=== PATIENT | female | born 1995 | race Two or more races ===

== ENCOUNTER 2021-11-04 12:59 | Emergency (ER) | payer SELFPAY ==
[~2021-11-04] VITALS: Ht 154.9 cm; Wt 90.0 kg
[2021-11-04] MEDS ORDERED: fentaNYL PF VIAL 100 MCG/2 ML VIAL IVP ONE (14:15)
[2021-11-04] MEDS ORDERED: ONDANSETRON PF 4 MG/2 ML VIAL. IVP ONE (14:15)
[2021-11-04] MEDS ORDERED: IV NORMAL SALINE 1000ML BAG 1,000 ML IV ONE (14:15)
--- NOTE | 2021-11-04 14:44 | PHYS DOC ---
Past Medical History Past Surgical History: No Surgical History General Adult EDM: Chief Complaint: ABDOMINAL PAIN HPI: HPI: Patient is a 26 year old female with no significant medical history presenting today with multiple complaints. Patient is complaining of 4 out of 10 right upper quadrant abdominal pain with nausea, chills, sore throat, right ear pain, symptoms began 2 weeks ago. Patient denies any fever. Denies any cough or congestion. Denies any chance she is . Patient is Yoruba-speaking, lead cashier line was attempted with no success, the wait time was too long. [employer] visiting professor was used Review of Systems: Review of Systems: Constitutional: Reports chills denies fever Eyes: Denies change in visual acuity. [] HENT: Reports right ear pain, sore throat denies nasal congestion Respiratory: denies cough or shortness of breath. [] Cardiovascular: Denies chest pain or edema. [] GI: Reports right upper quadrant abdominal pain, denies vomiting, bloody stools or diarrhea. [] : Denies dysuria. [] Musculoskeletal: Denies back pain or joint pain. [] Integument: Denies rash. [] Neurologic: Denies headache, focal weakness or sensory changes. [] Psychiatric: Denies depression or anxiety. [] Heart Score: C/O Chest Pain: N/A Risk Factors: Risk Factors: DM, Current or recent (<one month) smoker, HTN, HLP, family hi story of CAD, obesity. Risk Scores: Score 0 - 3: 2.5% MACE over next 6 weeks - Discharge Home Score 4 - 6: 20.3% MACE over next 6 weeks - Admit for Clinical Observation Score 7 - 10: 72.7% MACE over next 6 weeks - Early Invasive Strategies Current Medications: Current Medications Medications (Trade) Dose Ordered Sig/Caridad Start Time Stop Time Status Last Admin Dose Admin Fentanyl Citrate (Fentanyl 2ml Vial) 50 mcg 1X ONCE 11/04/21 14:15 11/04/21 14:23 DC Ondansetron HCl (Zofran) 4 mg 1X ONCE 11/04/21 14:15 11/04/21 14:23 DC Sodium Chloride 1,000 ml @ 1,000 mls/hr 1X ONCE 11/04/21 14:15 11/04/21 15:14 Allergies: Allergies: Allergies Coded Allergies Type Severity Reaction Last Updated Verified No Known Drug Allergies 11/04/21 No Physical Exam: PE: Constitutional: Well developed, well nourished, no acute distress, non-toxic appearance. [] HENT: Normocephalic, atraumatic, bilateral external ears normal, oropharynx moist, no oral exudates, nose normal. [] Eyes: PERRLA, EOMI, conjunctiva normal, no discharge. [] Neck: Normal range of motion, no tenderness, supple, no stridor. [] Cardiovascular:Heart rate regular rhythm, no murmur [] Lungs & Thorax: Bilateral breath sounds clear to auscultation [] Abdomen: Bowel sounds normal, soft, slight tenderness in the right upper quadrant with negative Song sign, no right lower quadrant tenderness, no masses, no pulsatile masses. [] Skin: Warm, dry, no erythema, no rash. [] Back: No tenderness, no CVA tenderness. [] Extremities: No tenderness, no cyanosis, no clubbing, ROM intact, no edema. [] Neurologic: Alert and oriented X 3, normal motor function, normal sensory function, no focal deficits noted. [] Psychologic: Affect normal, judgement normal, mood normal. [] Current Patient Data: Vital Signs: Vital Signs Date Time Temp Pulse Resp B/P (MAP) Pulse Ox O2 Delivery O2 Flow Rate FiO2 11/04/21 13:37 98.9 83 20 140/88 (105) 99 Room Air 98.9 EKG: EKG: [] Radiology/Procedures: Radiology/Procedures: []PROCEDURE: ABDOMEN LTD Exam Date: 11/04/2021 2:40 PM US ABDOMEN LIMITED Indication: Reason: RUQ pain / Spl. Instructions: / History: . TECHNIQUE: Multiple longitudinal and transverse sonographic images of the right upper quadrant and gallbladder are submitted for interpretation. FINDINGS: The liver is normal in size but diffusely increased in echogenicity and h eterogeneous in echotexture. The portal vein is patent with hepatopetal flow. No focal intrahepatic abnormality is seen. The gallbladder is normal, without gallstones, gallbladder wall thickening or pericholecystic fluid. There is no biliary ductal dilatation, with the common bile duct measuring 3 mm. The visualized abdominal aorta, inferior vena cava and pancreas are within normal limits. There is no upper abdominal ascites. The right kidney is normal in appearance, measuring 10.1 cm. IMPRESSION: Diffusely increased hepatic echogenicity and heterogeneous echotexture, consistent with underlying fatty infiltration and/or hepatocellular disease. This limits sonographic sensitivity. Electronically signed by: Lorna Robbins MD (11/04/2021 3:50 PM) [facility] DICTATED and SIGNED BY: LORNA ROBBINS MD DATE: 11/04/21 [id number] 0 Course & Med Decision Making: Course & Med Decision Making Pertinent Labs and Imaging studies reviewed. (See chart for details) This a 26-year-old female patient presenting to the ED today with complaints of right upper quadrant abdominal pain, nausea, chills, sore throat, right ear pain, symptoms for 2 weeks. Vitals on arrival to the ED temperature 98.9, heart rate 83, respiration 20 on room air, blood pressure 140/88, O2 sats 99% Right upper quadrant limited ultrasound noted for diffusely increased hepatic echogenicity and heterogeneous echotexture, consistent with underlying fatty infiltration and/or hepatocellular disease. This limits sonographic sensitivity. CBC with no acute findings, CMP with AST of 39, ALT of 64, ALK is normal. Negative urine hCG. UA negative for infection, noted for dehydration, IV fluids given in the ED. Negative rapid Covid test, positive influenza A-supportive care measures recommended Dragon Disclaimer: Dragon Disclaimer: This electronic medical record was generated, in whole or in part, using a voice recognition dictation system. Departure Departure Impression: Primary Impression: Acute viral pharyngitis Additional Impressions: Influenza A Right upper quadrant pain Disposition: HOME / SELF CARE / HOMELESS Condition: STABLE Patient Instructions: Abdominal Pain (Nonspecific), Influenza A (H1N1) Additional Instructions: You were evaluated in the emergency room and tested positive for influenza A, this is a viral illness, it will ran its own course. Please take Tylenol or Motrin for pain or fever, rest, push fluids, maintain good hand hygiene. Follow-up with your PCP next week Scripts Ondansetron (ONDANSETRON ODT) 4 Mg Tab.rapdis 1 TAB PO PRN Q6-8HRS, #16 TAB Prov: CAMACHO RESENDIZ APRN 11/04/21 CAMACHO RESENDIZ APRN Nov 04, 2021 14:44
--- NOTE | 2021-11-04 15:52 | RAD ---
Exam Date: 11/04/2021 2:40 PM US ABDOMEN LIMITED Indication: Reason: RUQ pain / Spl. Instructions: / History: . TECHNIQUE: Multiple longitudinal and transverse sonographic images of the right upper quadrant and g allbladder are submitted for interpretation. FINDINGS: The liver is normal in size but diffusely increased in echogenicity and heterogeneous in echotexture. The portal vein is patent with hepatopetal flow. No focal intrahepatic abnormality is seen. The gallbladder is normal, without gallstones, gallbladder wall thickening or pericholecystic fluid. There is no biliary ductal dilatation, with the common bile duct measuring 3 mm. The visualized abdominal aorta, inferior vena cava and pancreas are within normal limits. There is n o upper abdominal ascites. The right kidney is normal in appearance, measuring 10.1 cm. IMPRESSION: Diffusely increased hepatic echogenicity and heterogeneous echotexture, consistent with underlying fa tty infiltration and/or hepatocellular disease. This limits sonographic sensitivity. Electronically signed by: Robert Robbins MD (11/04/2021 3:50 PM) [facility]
[2021-11-04 16:23] LABS: BARBITURATES NEG (NEG); BENZODIAZEPINES NEG (NEG); CANNABINOIDS POS (NEG); COCAINE NEG (NEG); METHADONE NEG (NEG); OPIATES NEG (NEG); PHENCYCLIDINE NEG (NEG)
[2021-11-04 16:32] LABS: AMPHETAMINE/METHAMPHETAMINE NEG (NEG)
[2021-11-04 16:46] LABS: BASO # 0.1 x10^3/uL (0.0-0.2); BASO % 1 % (0-3); EOS # 0.1 x10^3/uL (0.0-0.7); EOS % 2 % (0-3); HEMATOCRIT 41.9 % (36.0-47.0); HEMOGLOBIN 14.2 g/dL (12.0-15.5); LYMPH # 1.2 x10^3/uL (1.0-4.8); LYMPH % 19 % (24-48); MEAN CORPUSCULAR HEMOGLOBIN 31 pg (25-35); MEAN CORPUSCULAR HGB CONC 34 g/dL (31-37); MEAN CORPUSCULAR VOLUME 90 fL (79-100); MONO % 15 % (0-9); NEUT % 63 % (31-73); PLATELET COUNT 322 x10^3/uL (140-400); RED BLOOD COUNT 4.67 x10^6/uL (3.50-5.40); RED CELL DISTRIBUTION WIDTH 13.7 % (11.5-14.5); WHITE BLOOD COUNT 6.4 x10^3/uL (4.0-11.0)
[2021-11-04 17:06] LABS: CREATININE 0.9 mg/dL (0.6-1.0); GFR 76.9; POTASSIUM 3.7 mmol/L (3.5-5.1)
[2021-11-04 17:20] LABS: ALBUMIN 4.1 g/dL (3.4-5.0); TOTAL BILIRUBIN 0.4 mg/dL (0.2-1.0); TOTAL PROTEIN 8.2 g/dL (6.4-8.2)
[2021-11-04 17:20] LABS: BILIRUBIN,URINE NEGATIVE (NEG); CLARITY,URINE CLEAR; COLOR,URINE YELLOW; NITRITE,URINE NEGATIVE (NEG); PROTEIN,URINE 30 mg/dL (NEG-TRACE); RBC,URINE 0 /HPF (0-2); UROBILINOGEN,URINE 0.2 mg/dL (0.2 mg/dL); WBC,URINE 0 /HPF (0-4)
[2021-11-04 17:21] LABS: BACTERIA,URINE 0 /HPF (0-FEW)
[2021-11-04 17:30] LABS: INFLUENZA B PATIENT NEGATIVE (NEGATIVE)
[2021-11-04] MEDS ORDERED: IOHEXOL 300 MG/ML 100ML VIAL. IV ONE (17:30)
[2021-11-04 17:33] LABS: INFLUENZA A PATIENT POSITIVE (NEGATIVE)
[2021-11-04] MEDS ORDERED: ONDA4TAB12 PO (17:57)
[2021-11-04] MEDS ORDERED: CONTRAST GIVEN. MC PRN (18:00)
[2021-11-04 18:04] VITALS: BP 134/75
--- NOTE | 2021-11-06 11:19 | NUR ---
IP: Attempted to contact pt concerning covid results. No answer, left a voicemail to return the call.
== END 2021-11-04 18:14 | disposition home or self-care (01) ==
LOC: ER 12:59
DX: J02.8 Acute pharyngitis due to other specified organisms (principal); B97.89 Other viral agents as the cause of diseases classified elsewhere; Z20.822 Contact with and (suspected) exposure to COVID-19; J09.X2 Influenza due to identified novel influenza A virus with other respiratory manifestations; R10.11 Right upper quadrant pain; H92.01 Otalgia, right ear
CPT/HCPCS: 36415; 76705; 80053; 80307; 81001; 81025; 83690; 85025; 87070; 87426; 87804; 87880; 96361; 96374; 96375; 99285; C9803; G0480; J2405; J3010; J7030; U0003